=== PATIENT | female | born 1950 | race African-American/Black ===

== ENCOUNTER 2018-01-17 13:52 | Emergency (ER) | payer MEDICARE ==
[2018-01-17] MEDS ORDERED: Furosemide 40 MG/4 ML VIAL ONE (14:11)
[2018-01-17 14:17] LABS: #Lymphocytes 1.6 thou/uL (1.20-3.40); #Monocytes 0.4 thou/uL (0.11-0.59); #Neutrophils 4.8 thou/uL (1.40-6.50); %Basophils 0.5 % (0.0-1.0); %Eosinophils 0.5 % (0.0-10.0); %Lymphocytes 23.3 % (21.0-51.0); %Monocytes 5.2 % (0.0-10.0); %Neutrophils 70.5 % (42.0-75.0); Hemoglobin 13.5 g/dL (12.0-16.0); Mean Corpuscular HGB CONC 36.4 g/dL (32.0-36.0); Mean Corpuscular Hemoglobin 31.9 pg (27.0-31.0); Mean Corpuscular Volume 87.8 fl (81.0-99.0); Mean Platelet Volume 8.5 fL (7.4-10.4); Platelet Count 268 thou/uL (130-400); RBC Distribution Width 13.6 % (11.5-14.5); Red Blood Cell (RBC) Count 4.22 mill/uL (4.20-5.40); White Blood Cell (WBC) Count 6.8 thou/uL (4.8-10.8)
[2018-01-17] MEDS ORDERED: Nitroglycerin 2% Ointment 1 INCH/1 GM Packet ONE (14:18)
[2018-01-17 14:24] LABS: INR-International Normal Ratio 0.9; PTT 27.8 SEC (22.9-36.1); Prothrombin Time 12.6 SEC (12.0-14.7)
[2018-01-17 14:34] LABS: ALT (SGPT) 40 U/L (8-55); AST (SGOT) 26 U/L (5-34); Albumin 3.6 g/dL (3.4-4.8); Alkaline Phosphatase 117 U/L (40-150); Anion Gap 17 mmol/L (10-20); BUN (Urea Nitrogen) 24 mg/dL (9.8-20.1); Bilirubin, Total 0.4 mg/dL (0.2-1.2); Calc. Creatinine Clearance 0 mL/min (70-130); Carbon Dioxide 24 mmol/L (23-31); Chloride 106 mmol/L (98-107); Estimated GFR-MDRD 58; Globulin 3.9 g/dL (2.4-3.5); Glucose 121 mg/dL (80-115); Potassium 3.6 mmol/L (3.5-5.1); Protein, Total 7.5 g/dL (6.0-8.3); Sodium 143 mmol/L (136-145)
[2018-01-17 14:37] LABS: CKMB 1.3 ng/mL (0-6.6); Troponin I Less than 0.010 ng/mL (< 0.028)
[2018-01-17] MEDS ORDERED: methylPREDNISolone Sod Succ/PF 125 MG/2 ML VIAL ONE (15:15)
[2018-01-17 15:33] LABS: Bilirubin Negative (Negative); Blood, Urine Trace (Negative); Clarity Clear (Clear); Glucose, Urine (Dipstick) Negative (Negative); Leukocyte Negative (Negative); Nitrite Negative (Negative); Protein, Urine (Dipstick) Negative (Neg-Trace); Specific Gravity, Urine 1.015 (1.005-1.030); Urobilinogen 0.2 mg/dL (0.2-1.0)
[2018-01-17 15:36] LABS: Bacteria/HPF Rare-Few HPF (None Seen); RBC/HPF 0-3 HPF (0-3); Squamous Epithelial 0-3 HPF (0-3); WBC/HPF 0-3 HPF (0-3)
[2018-01-17] MEDS ORDERED: Magnesium Sulfate 2 GM/100 ML BAG ONE (15:44)
[2018-01-17] MEDS ORDERED: Enoxaparin Sodium 100 MG/ML SYRINGE ONE (15:44)
[2018-01-17 15:46] LABS: Amphetamine Not Detected (NotDetected); Barbiturates Screen Not Detected (NotDetected); Benzodiazepine Screen Not Detected (NotDetected); Cocaine Metabolite Screen Not Detected (NotDetected); Medtox Control Line Valid? VALID (VALID); Methadone Not Detected (NotDetected); Methamphetamine Not Detected (NotDetected); Opiate Screen Not Detected (NotDetected); Oxycodone Screen Not Detected (NotDetected); Phencyclidine (PCP) Not Detected (NotDetected); THC/Cannabinoid Screen Not Detected (NotDetected); Tricyclic Screen Not Detected (NotDetected)
--- NOTE | 2018-01-17 18:11 | RAD ---
CHEST TWO VIEWS 01/17/18 Comparison is made with the 11/15/08 study done at [facility]. The heart remains normal in size. There is no vascular congestion, edema, or pleural effusion. The mac ngs are clear. Epidural stimulator leads are seen in the mid thoracic region. The aorta is a little m ore tortuous than it was in 2008. The bony structures show minor degenerative changes in the spine bu t are otherwise normal. IMPRESSION: No acute thoracic findings. POS: HOME
== END 2018-01-17 18:30 | disposition short-term general hospital (02) ==
LOC: BURERS 13:52
DX: J45.902 Unspecified asthma with status asthmaticus (principal); I10 Essential (primary) hypertension; E78.5 Hyperlipidemia, unspecified
CPT/HCPCS: 71046; 80053; 80306; 81003; 81015; 82553; 83880; 84443; 84484; 85025; 85379; 85610; 85730; 93005; 94760; 96365; 96372; 96375; J1650; J1940; J2930; J3475; J7620

== ENCOUNTER → 2018-08-13 14:35 | Emergency (ER) | payer MEDICARE ==
[~2018-08-13 14:35] MED LIST: Ketorolac Tromethamine 60 MG/2 ML VIAL ONE; Metoprolol Tartrate 5 MG/5 ML VIAL ONE
== END | disposition home or self-care (01) ==
LOC: BURERS 14:35
DX: G44.209 Tension-type headache, unspecified, not intractable (principal); I10 Essential (primary) hypertension
CPT/HCPCS: 96372; J1885

== ENCOUNTER 2019-04-01 13:18 | Outpatient (CLI) | payer MEDICARE ==
--- NOTE | 2019-04-01 14:07 | RAD ---
EXAM: Left hip: 2 views INDICATIONS: Hip pain COMPARISON: None. FINDINGS: No fracture. Minimal degenerative change. No osseous abnormality. IMPRESSION: No acute finding
== END 2019-04-01 13:19 | disposition home or self-care (01) ==
LOC: BURRAD 13:18
PROVIDERS: ATTEND Family Medicine
DX: M25.552 Pain in left hip (principal)